=== PATIENT | male | born 1930 | race Hispanic/Latino ===

== ENCOUNTER 2017-06-03 17:26 | Emergency (ER) | payer MEDICARE ==
[2017-06-03] MEDS ORDERED: ASPIRIN 325 MG TABLET ONE (17:38)
[2017-06-03 17:51] LABS: BASOPHILS % (AUTO) 1.5 % (0.0-5.0); EOSINOPHILS % (AUTO) 3.7 % (0.0-8.0); LYMPHOCYTES % (AUTO) 26.2 % (21.0-51.0); MEAN CORPUSCULAR HEMOGLOBIN 30.9 pg (27.0-33.0); MEAN CORPUSCULAR HGB CONC 33.8 g/dL (32.0-36.0); MEAN CORPUSCULAR VOLUME 91.5 fL (79-99); MONOCYTES % (AUTO) 9.7 % (3.0-13.0); NEUTROPHILS % (AUTO) 58.9 % (40.0-77.0); PLATELET COUNT (AUTO) 158 K/uL (130-400); RED BLOOD CELL COUNT(AUTO) 4.26 MIL/uL (4.50-6.20); RED CELL DISTRIBUTION WIDTH 15.7 % (11.0-15.5); WHITE BLOOD COUNT (AUTO) 6.7 K/uL (4.8-10.8)
[2017-06-03 18:01] LABS: POTASSIUM 3.5 mmol/L (3.5-5.1)
[2017-06-03 18:04] LABS: INR 1.45 (0.85-1.15); PARTIAL THROMBOPLASTIN TIME 38.3 SEC (26.3-35.5); PROTHROMBIN TIME 15.1 SEC (9.6-11.6)
[2017-06-03 18:05] LABS: ALBUMIN 3.5 g/dL (3.5-5.0); BILIRUBIN,TOTAL 0.5 mg/dL (0.2-1.0); TOTAL PROTEIN, SERUM 6.6 g/dL (6.0-8.3)
[2017-06-03 18:14] LABS: B-TYPE NATRIURETIC PEPTIDE 68 pg/mL (0-100)
[2017-06-03 18:16] LABS: APPEARANCE,URINE Clear (CLEAR); BILIRUBIN,URINE Negative (NEGATIVE); COLOR,URINE Yellow (YELLOW); GLUCOSE, URINE (UA) Negative (NEGATIVE); KETONES,URINE Negative (NEGATIVE); LEUKOCYTE ESTERASE ,URINE Negative (NEGATIVE); NITRATE,URINE Negative (NEGATIVE); OCCULT BLOOD,URINE Small (NEGATIVE); PH,URINE 5.5 (5.0-8.0); PROTEIN,URINE Negative (NEGATIVE); UROBILINOGEN,URINE 0.2 mg/dL (0.2-1.0)
[2017-06-03 18:26] LABS: RAPID GROUP A STREP NEGATIVE (NEGATIVE)
[2017-06-03 18:26] LABS: BACTERIA,URINE None Seen /HPF (None Seen); RBC,URINE 0-1 /HPF (0-1); WBC,URINE None Seen /HPF (0-1)
[2017-06-03 18:27] LABS: SQUAMOUS EPITHELIAL CELL,UR 0-2 /LPF (0-2)
== END 2017-06-03 20:20 | disposition left against medical advice (07) ==
LOC: EDH 17:26
DX: R07.89 Other chest pain (principal); I10 Essential (primary) hypertension; I25.10 Atherosclerotic heart disease of native coronary artery without angina pectoris; Z86.73 Personal history of transient ischemic attack (TIA), and cerebral infarction without residual deficits
CPT/HCPCS: 36415; 71045; 80053; 81001; 83690; 83880; 84484; 85025; 85610; 85730; 87804; 87880; 93005

== ENCOUNTER → 2019-01-08 | Outpatient (CLI) | payer MEDICARE | END | disposition home or self-care (01) | LOC: SHCH 13:38 | PROVIDERS: ATTEND Internal Medicine Cardiovascular Disease | DX: I87.2 Venous insufficiency (chronic) (peripheral) (principal) | CPT/HCPCS: 93970 ==

== ENCOUNTER → 2019-01-10 | Outpatient (CLI) | payer MEDICARE | END | disposition home or self-care (01) | LOC: SHCH 12:22 | PROVIDERS: ATTEND Internal Medicine Cardiovascular Disease | DX: I35.8 Other nonrheumatic aortic valve disorders (principal); I51.7 Cardiomegaly | CPT/HCPCS: 93306 ==

== ENCOUNTER → 2020-01-08 | Outpatient (CLI) | payer MEDICARE ==
[~2020-01-08] MED LIST: FERR-82 PO; LEVE500L PO; RIVA15TA PO; SIMV-46 PO; SODIUM CHLORIDE 0.9% 1000ML 1,000 ML IV ONE; TAMS-1 PO
== END | disposition home or self-care (01) ==
LOC: EDSTATUS 09:00 → DAH 10:00
PROVIDERS: ATTEND Internal Medicine
DX: Z20.828 Contact with and (suspected) exposure to other viral communicable diseases (principal); R19.5 Other fecal abnormalities; D50.9 Iron deficiency anemia, unspecified; D69.8 Other specified hemorrhagic conditions
CPT/HCPCS: C9803; J7030; U0003

== ENCOUNTER 2020-01-15 06:42 | Day surgery (SDC) | payer MEDICARE ==
[~2020-01-15] VITALS: Ht 175.3 cm; Wt 72.1 kg
[2020-01-15 08:05] VITALS: BP 181/83
[2020-01-15] MEDS ORDERED: FERR-82 PO (08:21)
[2020-01-15] MEDS ORDERED: RIVA15TA PO (08:21)
[2020-01-15] MEDS ORDERED: TAMS-1 PO (08:21)
[2020-01-15] MEDS ORDERED: SIMV-46 PO (08:21)
[2020-01-15] MEDS ORDERED: LEVE500L PO (08:21)
[2020-01-15] MEDS ORDERED: SODIUM CHLORIDE 0.9% 1000ML 1,000 ML IV ONE (08:28)
[2020-01-15 08:33] LABS: EOSINOPHILS % (AUTO) 1.3 % (0.0-8.0); HEMATOCRIT 27.2 % (42-54); LYMPHOCYTES % (AUTO) 46.2 % (21.0-51.0); MONOCYTES % (AUTO) 5.7 % (3.0-13.0); NEUTROPHILS % (AUTO) 45.5 % (40.0-77.0); PLATELET COUNT (AUTO) 35 K/uL (130-400); RED BLOOD CELL COUNT(AUTO) 2.72 MIL/uL (4.50-6.20); WHITE BLOOD COUNT (AUTO) 1.6 K/uL (4.8-10.8)
[2020-01-15] MEDS ORDERED: PROPOFOL 10 MG/ML 20ML VIAL IV ONE (10:30)
[2020-01-15 10:40] VITALS: BP 168/85
[2020-01-15 10:45] VITALS: BP 163/82
[2020-01-15 10:50] VITALS: BP 158/89
[2020-01-15 10:55] VITALS: BP 159/86
== END 2020-01-15 11:20 | disposition home or self-care (01) ==
LOC: ENDO 06:42 → DAH 06:42 → ENDO 11:20
PROVIDERS: ATTEND Internal Medicine
DX: D50.9 Iron deficiency anemia, unspecified (principal); K25.9 Gastric ulcer, unspecified as acute or chronic, without hemorrhage or perforation; K29.71 Gastritis, unspecified, with bleeding; K31.89 Other diseases of stomach and duodenum; E11.22 Type 2 diabetes mellitus with diabetic chronic kidney disease; I12.9 Hypertensive chronic kidney disease with stage 1 through stage 4 chronic kidney disease, or unspecified chronic kidney disease; N18.2 Chronic kidney disease, stage 2 (mild); I25.10 Atherosclerotic heart disease of native coronary artery without angina pectoris; G40.909 Epilepsy, unspecified, not intractable, without status epilepticus; N40.0 Benign prostatic hyperplasia without lower urinary tract symptoms; Z86.73 Personal history of transient ischemic attack (TIA), and cerebral infarction without residual deficits; Z98.42 Cataract extraction status, left eye; Z98.41 Cataract extraction status, right eye; Z79.899 Other long term (current) drug therapy
CPT/HCPCS: 36415; 43239; 82948 ×2; 85025; 86850; 86900; 86901; 93005; A4215; A4221; A4222; A4223; A4606; A4620; A4657; A4663; J2704; J7030 ×2; P9034